=== PATIENT | male | born 1985 | race Caucasian/White ===

== ENCOUNTER 2017-09-11 20:05 | Inpatient (IN) | payer MEDICAID ==
[~2017-09-11] VITALS: Ht 190.5 cm; Wt 90.3 kg
[2017-09-11] MEDS ORDERED: ZOLPIDEM TARTRATE 10 MG TABLET PO PRN (20:45)
[2017-09-11 21:08] VITALS: BP 155/85
[2017-09-11] MEDS ORDERED: DiphenhydrAMINE HCL 50 MG/ML VIAL IM ONE (21:30)
[2017-09-11] MEDS ORDERED: LORazepam 2 MG/ML VIAL IM ONE (21:30)
[2017-09-11] MEDS ORDERED: HALOPERIDOL LACTATE 5 MG/ML VIAL IM ONE (21:30)
[2017-09-11 22:06] VITALS: BP 109/62
[2017-09-12 08:15] VITALS: BP 109/70
[2017-09-12 08:30] LABS: BASOPHILS % (AUTO) 0.4 % (0.0-2.0); EOSINOPHILS % (AUTO) 4.7 % (1.0-6.0); HEMATOCRIT 44.2 % (41-53); HEMOGLOBIN 15.2 g/dL (13.5-17.5); LYMPHOCYTES # (AUTO) 3.5 K/uL (1.0-4.8); LYMPHOCYTES % (AUTO) 40.1 % (22.0-44.0); MEAN CORPUSCULAR HEMOGLOBIN 29.3 pg (26.0-34.0); MEAN CORPUSCULAR HGB CONC 34.3 G/dL (31.0-37.0); MEAN CORPUSCULAR VOLUME 85 fL (80-100); MONOCYTES # (AUTO) 0.5 K/uL (0.1-1.0); MONOCYTES % (AUTO) 5.5 % (2.0-9.0); NEUTROPHILS # (AUTO) 4.3 K/uL (1.8-7.7); NEUTROPHILS % (AUTO) 49.3 % (40.0-70.0); PLATELET COUNT (AUTO) 176 K/uL (150-450); RED BLOOD CELL COUNT(AUTO) 5.17 MIL/uL (4.50-5.90); RED CELL DISTRIBUTION WIDTH 13.7 % (11.5-14.5)
[2017-09-12 08:37] LABS: HEMOGLOBIN A1C 5.5 % (4.5-6.2)
[2017-09-12 09:02] LABS: ALANINE AMINOTRANSFERASE 27 U/L (12-78); ALKALINE PHOSPHATASE 66 U/L (46-116); ANION GAP 8 mmol/L (8-16); ASPARTATE AMINOTRANSFERASE 20 U/L (15-37); BILIRUBIN,TOTAL 0.9 mg/dL (0.1-1.0); CALCIUM, TOTAL 8.4 mg/dL (8.8-10.5); CARBON DIOXIDE 29 mmol/L (22-29); CHLORIDE 104 mmol/L (98-107); CHOL/HDL RATIO 3.4 (4.2-7.3); CHOLESTEROL 100 mg/dL (131-200); CREATININE 0.94 mg/dL (0.60-1.30); FREE T4 (FREE THYROXINE) 1.03 ng/dL (0.76-1.46); GLOMERULAR FILTR. RATE CALC > 60 mL/min (>60); GLUCOSE,RANDOM 91 mg/dL (70-110); HDL CHOLESTEROL 29 mg/dL (40-60); LDL CHOL (CALC.) 59 mg/dL (0-130); POTASSIUM 4.2 mmol/L (3.5-5.1); SODIUM SERUM 141 mmol/L (136-145); THYROID STIMULATING HORMONE 2.76 uIU/mL (0.36-3.74); TOTAL PROTEIN, SERUM 6.2 g/dL (6.4-8.2); TRIGLYCERIDES 59 mg/dL (15-150); UREA NITROGEN, BLOOD 9 mg/dL (7-18)
[2017-09-12] MEDS: NICOTINE 21 MG/24 HOUR PATCH TD SCH (09:15)
[2017-09-12] MEDS: LORazepam 2 MG TABLET PO PRN ×2 (09:16→16:34)
[2017-09-12] MEDS: OLANZapine 5 MG RAPDIS TABLET PO SCH (16:34)
[2017-09-12 17:21] VITALS: BP 117/71
[2017-09-13 08:27] VITALS: BP 109/66
[2017-09-13] MEDS: NICOTINE 21 MG/24 HOUR PATCH TD SCH (08:48)
[2017-09-13] MEDS: OLANZapine 5 MG RAPDIS TABLET PO SCH ×2 (08:48→16:46)
[2017-09-13 16:00] VITALS: BP 119/89
[2017-09-13] MEDS: LORazepam 2 MG TABLET PO PRN (16:46)
[2017-09-14 06:31] VITALS: BP 108/68
[2017-09-14 08:40] VITALS: BP 129/70
[2017-09-14] MEDS: OLANZapine 5 MG RAPDIS TABLET PO SCH (08:43)
[2017-09-14] MEDS: NICOTINE 21 MG/24 HOUR PATCH TD SCH (08:43)
[2017-09-14] MEDS ORDERED: OLAN5TAB40 PO (13:02)
== END 2017-09-14 14:55 | disposition home or self-care (01) | DRG 750 ==
LOC: EDSTATUS 20:29 → B2S 20:35 → B3A 21:50
PROVIDERS: ADMIT Psychiatry & Neurology Child & Adolescent Psychiatry; ATTEND Psychiatry & Neurology Child & Adolescent Psychiatry
DX: F25.0 Schizoaffective disorder, bipolar type (principal); F29 Unspecified psychosis not due to a substance or known physiological condition; R45.851 Suicidal ideations; F17.200 Nicotine dependence, unspecified, uncomplicated; F12.90 Cannabis use, unspecified, uncomplicated; F41.9 Anxiety disorder, unspecified
CPT/HCPCS: 83036; 84439; 84443; 99285; J1200; J1630; J2060

== ENCOUNTER 2017-10-06 18:49 | Inpatient (IN) | payer MEDICAID ==
[~2017-10-06] VITALS: Ht 190.5 cm; Wt 101.1 kg
[~2017-10-06 18:49] MED LIST: OLAN5TAB40 PO
[2017-10-06] MEDS ORDERED: LORazepam 2 MG TABLET PO PRN (19:45)
[2017-10-06] MEDS ORDERED: HALOPERIDOL 5 MG TABLET PO PRN (19:45)
[2017-10-06] MEDS ORDERED: ZOLPIDEM TARTRATE 10 MG TABLET PO PRN (19:45)
[2017-10-06 20:25] VITALS: BP 146/86
[2017-10-07 07:01] VITALS: BP 123/81
[2017-10-07] MEDS ORDERED: ALBUTEROL SULFATE HFA 90 MCG/PUFF 8 GM INHALER IH PRN (08:00)
[2017-10-07] MEDS ORDERED: MAGNESIUM HYDROXIDE SUSPENSION 30 ML UDCUP PO PRN (08:00)
[2017-10-07] MEDS ORDERED: DOCUSATE SODIUM 100 MG CAPSULE PO PRN (08:00)
[2017-10-07] MEDS ORDERED: IBUPROFEN 400 MG TABLET PO PRN (08:00)
[2017-10-07] MEDS ORDERED: ONDANSETRON HCL 4 MG TABLET PO PRN (08:00)
[2017-10-07] MEDS ORDERED: MAG HYDROX/AL HYDROX/SIMETH ES 30 ML SUSPENSION UDCUP PO PRN (08:00)
[2017-10-07] MEDS ORDERED: PETROLATUM,WHITE 71 GM JELLY TP PRN (08:00)
[2017-10-07] MEDS ORDERED: ACETAMINOPHEN 325 MG TABLET PO PRN (08:00)
[2017-10-07 08:09] LABS: BASOPHILS % (AUTO) 0.5 % (0.0-2.0); EOSINOPHILS % (AUTO) 3.5 % (1.0-6.0); HEMOGLOBIN 15.8 g/dL (13.5-17.5); LYMPHOCYTES # (AUTO) 3.2 K/uL (1.0-4.8); LYMPHOCYTES % (AUTO) 30.2 % (22.0-44.0); MEAN CORPUSCULAR HEMOGLOBIN 29.8 pg (26.0-34.0); MEAN CORPUSCULAR HGB CONC 34.4 G/dL (31.0-37.0); MEAN CORPUSCULAR VOLUME 87 fL (80-100); MONOCYTES # (AUTO) 0.7 K/uL (0.1-1.0); MONOCYTES % (AUTO) 6.6 % (2.0-9.0); NEUTROPHILS # (AUTO) 6.2 K/uL (1.8-7.7); NEUTROPHILS % (AUTO) 59.2 % (40.0-70.0); PLATELET COUNT (AUTO) 195 K/uL (150-450); RED BLOOD CELL COUNT(AUTO) 5.29 MIL/uL (4.50-5.90); RED CELL DISTRIBUTION WIDTH 14.5 % (11.5-14.5)
[2017-10-07 08:19] LABS: HEMOGLOBIN A1C 5.2 % (4.5-6.2)
[2017-10-07 08:21] VITALS: BP 142/88
[2017-10-07 08:38] LABS: ALANINE AMINOTRANSFERASE 50 U/L (12-78); ALBUMIN 3.9 g/dL (3.4-5.0); ALKALINE PHOSPHATASE 82 U/L (46-116); ANION GAP 10 mmol/L (8-16); ASPARTATE AMINOTRANSFERASE 11 U/L (15-37); BILIRUBIN,TOTAL 0.7 mg/dL (0.1-1.0); CALCIUM, TOTAL 8.3 mg/dL (8.8-10.5); CARBON DIOXIDE 27 mmol/L (22-29); CHLORIDE 107 mmol/L (98-107); CHOLESTEROL 145 mg/dL (131-200); CREATININE 0.88 mg/dL (0.60-1.30); GLOMERULAR FILTR. RATE CALC > 60 mL/min (>60); GLUCOSE,RANDOM 79 mg/dL (70-110); HDL CHOLESTEROL 29 mg/dL (40-60); LDL CHOL (CALC.) 94 mg/dL (0-130); POTASSIUM 3.8 mmol/L (3.5-5.1); SODIUM SERUM 144 mmol/L (136-145); THYROID STIMULATING HORMONE 2.65 uIU/mL (0.36-3.74); TOTAL PROTEIN, SERUM 6.6 g/dL (6.4-8.2); TRIGLYCERIDES 111 mg/dL (15-150); UREA NITROGEN, BLOOD 9 mg/dL (7-18)
[2017-10-07] MEDS ORDERED: NICOTINE 14 MG/24 HOUR PATCH TD SCH ×2 (09:00)
== END 2017-10-07 14:45 | disposition home or self-care (01) | DRG 751 ==
LOC: B3A 19:48
PROVIDERS: ADMIT Psychiatry & Neurology Psychiatry; ATTEND Psychiatry & Neurology Child & Adolescent Psychiatry
DX: F29 Unspecified psychosis not due to a substance or known physiological condition (principal); E83.51 Hypocalcemia; I10 Essential (primary) hypertension; F32.9 Major depressive disorder, single episode, unspecified; F41.9 Anxiety disorder, unspecified; F12.90 Cannabis use, unspecified, uncomplicated; F17.200 Nicotine dependence, unspecified, uncomplicated; F19.10 Other psychoactive substance abuse, uncomplicated; Z91.5 Personal history of self-harm; Z79.899 Other long term (current) drug therapy
CPT/HCPCS: 83036; 84439; 84443; 87081

== ENCOUNTER 2019-01-22 13:11 | Inpatient (IN) | payer MEDICAID ==
[~2019-01-22] VITALS: Ht 190.5 cm; Wt 92.5 kg
[2019-01-22] MEDS ORDERED: HALOPERIDOL 5 MG TABLET PO PRN (13:30)
[2019-01-22] MEDS ORDERED: ZOLPIDEM TARTRATE 10 MG TABLET PO PRN (13:30)
[2019-01-22 13:37] VITALS: BP 143/92
[2019-01-22] MEDS: LORazepam 2 MG TABLET PO PRN (14:42)
[2019-01-22] MEDS ORDERED: PNEUMOCOCCAL VACCINE POLYVALENT 0.5 ML VIAL [PPSV23] IM ONE (15:15)
[2019-01-22] MEDS ORDERED: CloNIDine HCL 0.1 MG TABLET PO PRN (16:00)
[2019-01-22] MEDS ORDERED: DOCUSATE SODIUM 100 MG CAPSULE PO PRN (16:00)
[2019-01-22] MEDS ORDERED: LOPERAMIDE HCL 2 MG CAPSULE PO PRN (16:00)
[2019-01-22] MEDS ORDERED: MAG HYDROX/AL HYDROX/SIMETH ES 30 ML SUSPENSION UDCUP PO PRN (16:00)
[2019-01-22] MEDS ORDERED: ALBUTEROL SULFATE HFA 90 MCG/PUFF 8 GM INHALER IH PRN (16:00)
[2019-01-22] MEDS ORDERED: GuaiFENesin/D-METHORPHAN [SUGAR-FREE] 200-20MG/10 ML SYRUP UDCUP PO PRN (16:00)
[2019-01-22] MEDS ORDERED: IBUPROFEN 400 MG TABLET PO PRN (16:00)
[2019-01-22] MEDS ORDERED: MAGNESIUM HYDROXIDE SUSPENSION 30 ML UDCUP PO PRN (16:00)
[2019-01-22] MEDS ORDERED: NICOTINE 14 MG/24 HOUR PATCH TD PRN (16:00)
[2019-01-22] MEDS ORDERED: PETROLATUM,WHITE 28 GM JELLY TP PRN (16:00)
[2019-01-22] MEDS ORDERED: ACETAMINOPHEN 325 MG TABLET PO PRN (16:00)
[2019-01-22 16:13] VITALS: BP 195/69
[2019-01-22 16:15] VITALS: BP 149/69
[2019-01-22 18:43] VITALS: BP 123/74
[2019-01-22 19:56] VITALS: BP 123/74
[2019-01-23 00:21] VITALS: BP 118/70
[2019-01-23] MEDS ORDERED: INFLUENZA VIRUS VACCINE QVS 2019-20 (3YR+)/PF 60 MCG/0.5 ML SYRINGE IM ONE (04:45)
[2019-01-23 07:54] LABS: BASOPHILS % (AUTO) 0.4 % (0.0-2.0); EOSINOPHILS % (AUTO) 4.5 % (1.0-6.0); HEMATOCRIT 44.3 % (41-53); HEMOGLOBIN 14.9 g/dL (13.5-17.5); LYMPHOCYTES # (AUTO) 2.6 K/uL (1.0-4.8); MEAN CORPUSCULAR HEMOGLOBIN 29.4 pg (26.0-34.0); MEAN CORPUSCULAR HGB CONC 33.6 G/dL (31.0-37.0); MEAN CORPUSCULAR VOLUME 87 fL (80-100); MONOCYTES # (AUTO) 0.6 K/uL (0.1-1.0); MONOCYTES % (AUTO) 7.1 % (2.0-9.0); PLATELET COUNT (AUTO) 205 K/uL (150-450); RED BLOOD CELL COUNT(AUTO) 5.08 MIL/uL (4.50-5.90); RED CELL DISTRIBUTION WIDTH 13.9 % (11.5-14.5)
[2019-01-23 08:02] LABS: HEMOGLOBIN A1C 5.2 % (4.5-6.2)
[2019-01-23 08:10] VITALS: BP 106/68
[2019-01-23 08:17] LABS: ALANINE AMINOTRANSFERASE 17 U/L (12-78); ALBUMIN 3.9 g/dL (3.4-5.0); ALKALINE PHOSPHATASE 70 U/L (46-116); ANION GAP 8 mmol/L (8-16); ASPARTATE AMINOTRANSFERASE 11 U/L (15-37); BILIRUBIN,TOTAL 0.6 mg/dL (0.1-1.0); CALCIUM, TOTAL 8.9 mg/dL (8.8-10.5); CARBON DIOXIDE 28 mmol/L (22-29); CHLORIDE 105 mmol/L (98-107); CHOL/HDL RATIO 4.3 (4.2-7.3); CHOLESTEROL 115 mg/dL (131-200); CREATININE 0.96 mg/dL (0.60-1.30); FREE T4 (FREE THYROXINE) 1.04 ng/dL (0.76-1.46); GLOMERULAR FILTR. RATE CALC > 60 mL/min (>60); GLUCOSE,RANDOM 76 mg/dL (70-110); HDL CHOLESTEROL 27 mg/dL (40-60); LDL CHOL (CALC.) 77 mg/dL (0-130); POTASSIUM 3.8 mmol/L (3.5-5.1); SODIUM SERUM 141 mmol/L (136-145); THYROID STIMULATING HORMONE 1.42 uIU/mL (0.36-3.74); TOTAL PROTEIN, SERUM 6.5 g/dL (6.4-8.2); TRIGLYCERIDES 56 mg/dL (15-150); UREA NITROGEN, BLOOD 11 mg/dL (7-18)
[2019-01-23 16:06] VITALS: BP 124/71
[2019-01-23] MEDS: OLANZapine 5 MG RAPDIS TABLET PO SCH (21:11)
[2019-01-24] VITALS: BP 105/66
[2019-01-24] MEDS: LORazepam 2 MG TABLET PO PRN (00:06)
[2019-01-24 08:16] VITALS: BP 133/75
[2019-01-24] MEDS: BACITRACIN 28.4 GM OINTMENT TP SCH ×2 (09:00→18:16)
[2019-01-24] MEDS ORDERED: BACITRACIN 28.4 GM OINTMENT TP SCH (09:00)
[2019-01-24 16:07] VITALS: BP 111/67
[2019-01-24] MEDS: OLANZapine 5 MG RAPDIS TABLET PO SCH (20:22)
[2019-01-25 01:23] VITALS: BP 116/75
[2019-01-25] MEDS: BACITRACIN 28.4 GM OINTMENT TP SCH (08:35)
[2019-01-25 08:45] VITALS: BP 132/74
[2019-01-25] MEDS ORDERED: OLAN5TAB30 PO (10:32)
[2019-01-25] MEDS ORDERED: OLAN5TAB40 PO (11:21)
== END 2019-01-25 14:50 | disposition home or self-care (01) | DRG 750 ==
LOC: B2S 14:35
DX: F20.0 Paranoid schizophrenia (principal); R45.851 Suicidal ideations; I10 Essential (primary) hypertension; F15.10 Other stimulant abuse, uncomplicated; F41.9 Anxiety disorder, unspecified; S31.809A Unspecified open wound of unspecified buttock, initial encounter; F19.10 Other psychoactive substance abuse, uncomplicated; X58.XXXA Exposure to other specified factors, initial encounter; Y93.89 Activity, other specified; Y92.89 Other specified places as the place of occurrence of the external cause; Y99.8 Other external cause status; Z91.5 Personal history of self-harm
CPT/HCPCS: 83036; 84439; 84443

== ENCOUNTER 2023-12-09 16:17 | Inpatient (IN) | payer MEDICAID, OTHER ==
[~2023-12-09] VITALS: Ht 190.5 cm; Wt 123.0 kg
[~2023-12-09 16:17] MED LIST changes: +OLAN5TAB30 PO; -OLAN5TAB40 PO; +OLAN5TAB94 PO
[2023-12-09] MEDS: LORazepam 2 MG/ML VIAL IM ONE (19:18)
[2023-12-09] MEDS: HALOPERIDOL LACTATE 5 MG/ML VIAL IM ONE (19:18)
[2023-12-09] MEDS: DiphenhydrAMINE HCL 50 MG/ML VIAL IM ONE (19:18)
[2023-12-09 22:08] LABS: BASOPHILS % (AUTO) 0.4 % (0.0-2.0); EOSINOPHILS % (AUTO) 3.8 % (1.0-6.0); HEMATOCRIT 42.7 % (41-53); HEMOGLOBIN 14.3 g/dL (13.5-17.5); LYMPHOCYTES # (AUTO) 2.6 K/uL (1.0-4.8); LYMPHOCYTES % (AUTO) 27.4 % (22.0-44.0); MEAN CORPUSCULAR HEMOGLOBIN 29.7 pg (26.0-34.0); MEAN CORPUSCULAR HGB CONC 33.6 G/dL (31.0-37.0); MEAN CORPUSCULAR VOLUME 88 fL (80-100); MONOCYTES # (AUTO) 0.5 K/uL (0.1-1.0); MONOCYTES % (AUTO) 5.4 % (2.0-9.0); NEUTROPHILS # (AUTO) 6.1 K/uL (1.8-7.7); PLATELET COUNT (AUTO) 181 K/uL (150-450); RED BLOOD CELL COUNT(AUTO) 4.83 MIL/uL (4.50-5.90); RED CELL DISTRIBUTION WIDTH 13.4 % (11.5-14.5); WHITE BLOOD COUNT (AUTO) 9.6 K/uL (4.5-11.0)
[2023-12-09 22:18] LABS: ANION GAP 11 mmol/L (8-16); CALCIUM, TOTAL 7.9 mg/dL (8.8-10.5); CARBON DIOXIDE 24 mmol/L (22-29); CHLORIDE 106 mmol/L (98-107); CREATININE 1.21 mg/dL (0.60-1.30); GLOMERULAR FILTR. RATE CALC > 60 mL/min (>60); GLUCOSE,RANDOM 108 mg/dL (70-110); POTASSIUM 3.9 mmol/L (3.5-5.1); SODIUM SERUM 141 mmol/L (136-145); UREA NITROGEN, BLOOD 13 mg/dL (7-18)
[2023-12-09 22:49] LABS: ALCOHOL, BLOOD (SERUM) 32 mg/dL (0-10)
[2023-12-09 23:31] LABS: COVID AG,FIA SOURCE NASAL SWAB
[2023-12-09 23:43] LABS: SARS-COV2 (COVID) ANTIGEN,FIA Negative (Negative)
[2023-12-09] MEDS ORDERED: ZOLPIDEM TARTRATE 10 MG TABLET PO PRN (23:45)
[2023-12-10 04:13] VITALS: BP 121/79; PULSE 70; RESP 18; TEMP 97.8; O2SAT 96
[2023-12-10] MEDS ORDERED: NICOTINE 14 MG/24 HOUR PATCH TD PRN (07:45)
[2023-12-10] MEDS ORDERED: DOCUSATE SODIUM 100 MG CAPSULE PO PRN (07:45)
[2023-12-10] MEDS ORDERED: MAG HYDROX/ALUMINUM HYD/SIMETH ES 30 ML SUSPENSION UDCUP PO PRN (07:45)
[2023-12-10] MEDS ORDERED: ONDANSETRON HCL 4 MG TABLET PO PRN (07:45)
[2023-12-10] MEDS ORDERED: GuaiFENesin/D-METHORPHAN [SUGAR-FREE] 200-20MG/10 ML SYRUP UDCUP PO PRN (07:45)
[2023-12-10] MEDS ORDERED: PETROLATUM,WHITE 28 GM JELLY TP PRN (07:45)
[2023-12-10] MEDS ORDERED: IBUPROFEN 400 MG TABLET PO PRN (07:45)
[2023-12-10] MEDS ORDERED: ALBUTEROL SULFATE HFA 90 MCG/PUFF 8 GM INHALER IH PRN (07:45)
[2023-12-10] MEDS ORDERED: ACETAMINOPHEN 325 MG TABLET PO PRN (07:45)
[2023-12-10] MEDS ORDERED: MAGNESIUM HYDROXIDE SUSPENSION 30 ML UDCUP PO PRN (07:45)
[2023-12-10] MEDS ORDERED: LOPERAMIDE HCL 2 MG CAPSULE PO PRN (07:45)
[2023-12-10] MEDS ORDERED: CloNIDine HCL 0.1 MG TABLET PO PRN (07:45)
[2023-12-10 08:27] VITALS: BP 126/73; PULSE 64; RESP 16; TEMP 97.3; O2SAT 95
[2023-12-10] MEDS: LORazepam 2 MG TABLET PO PRN (09:01)
[2023-12-10] MEDS: HALOPERIDOL 5 MG TABLET PO PRN (09:01)
[2023-12-10] MEDS: HALOPERIDOL 10 MG TABLET PO SCH (16:11)
[2023-12-11 08:10] VITALS: BP 141/80; PULSE 70; RESP 18; TEMP 98; O2SAT 98
[2023-12-11 11:20] VITALS: RESP 17
[2023-12-11] MEDS: PNEUMOCOCCAL VACCINE POLYVALENT 0.5 ML SYRINGE [PPSV23] IM. ONE (13:14)
[2023-12-11 20:14] VITALS: BP 117/64; PULSE 63; RESP 19; TEMP 97.7; O2SAT 97
[2023-12-12 08:16] VITALS: BP 115/69; PULSE 60; RESP 16; TEMP 97.3; O2SAT 96
[2023-12-12] MEDS ORDERED: HALO10TA21 PO ×2 (13:35→19:39)
== END 2023-12-12 18:45 | disposition home or self-care (01) | DRG 751 ==
LOC: EMS 16:17 → B3A 12-10 00:40
PROVIDERS: ADMIT Psychiatry & Neurology Child & Adolescent Psychiatry; ATTEND Psychiatry & Neurology Child & Adolescent Psychiatry
PROC: GZ58ZZZ Individual Psychotherapy, Cognitive-Behavioral (ICD-10-PCS; principal; 2023-12-10)
PROC: GZ56ZZZ Individual Psychotherapy, Supportive (ICD-10-PCS; 2023-12-10)
DX: F29 Unspecified psychosis not due to a substance or known physiological condition (principal); R45.851 Suicidal ideations; F20.9 Schizophrenia, unspecified; F41.9 Anxiety disorder, unspecified; Z20.822 Contact with and (suspected) exposure to COVID-19; I10 Essential (primary) hypertension; F17.200 Nicotine dependence, unspecified, uncomplicated; G47.00 Insomnia, unspecified
CPT/HCPCS: 80048; 85025; 99285; G0480; J1200; J1630; J2060